=== PATIENT | male | born 1995 | race Caucasian/White ===

== ENCOUNTER → 2023-12-06 | Emergency (ER) | payer SELFPAY ==
[~2023-12-06] MED LIST: NA CHLORIDE 0.9% 1,000 ML ONE
--- OUTSIDE RECORDS SUMMARY | 2023-12-06 21:18 | XMS REPORT | Continuity of Care Document ---
Author Name Unknown Address [address] [facility] [facility] [address] [place] [address] [facility] thconnect Address 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 Ordering Clinician Indication Dosage Frequency Signature (SIG) Comments Components Source Esomeprazol e Magnesium (Nexium Oral Susp) 10 Mg PACK 11-11 07:49: 00 No 20mg Daily [facility] Famotidine (Pepcid) 40 Mg TAB 11-11 07:49: 00 No 40mg Daily [facility] Ketorolac Tromethamin e (Toradol) 10 Mg TAB 11-11 07:49: 00 No 10mg Every 6 Hours as needed for Pain [facility] Ondansetron Hcl (Zofran Odt) 4 Mg TAB.RAPDIS 11-11 07:49: 00 No 4mg Every 8 Hours [facility] Vital Signs Vital Name Observation Time Observation Value Comments S rayray BP Diastolic 2021-11-11 08:26:00 69 mm[Hg] [facility] Systolic 2021-11-11 08:26:00 93 mm[Hg] [facility] Heart Rate 2021-11-11 08:26:00 58 /min [facility] Respiratory rate 2021-11-11 08:26:00 16 /min [facility] Body Temperature 2021-11-11 08:26:00 99.2 [degF] [facility] BP Diastolic 2021-11-11 08:05:00 69 mm[Hg] [facility] BP Systolic 2021-11-11 08:05:00 93 mm[Hg] [facility] Heart Rate 2021-11-11 08:05:00 58 /min [facility] Respiratory rate 2021-11-11 08:05:00 16 /min [facility] Body Temperature 2021-11-11 08:05:00 99.2 [degF] [facility] BP Diastolic 2021-11-11 07:20:00 69 mm[Hg] [facility] BP Systolic 2021-11-11 07:20:00 93 mm[Hg] [facility] Rate 2021-11-11 07:20:00 58 /min [facility] Respiratory rate 2021-11-11 07:20:00 16 /min [facility] Body Temperature 2021-11-11 07:20:00 99.2 [degF] [facility] Encounters Start Date/Time End Date/Time Encounter Type Admission Type Attending [facility] Facility Care Department Encounter ID Source 2021-11-11 07:15:00 2021-11-11 08:27:00 Emergency ER YESENIA LINDSEY [id number] [facility] [employer] 2021-11-11 07:15:00 2021-11-11 08:27:00 Departed Emergency Room ER YESENIA LINDSEY [id number] [facility] [employer]
--- NOTE | 2023-12-06 22:09 | RAD REPORT ---
EXAM DESCRIPTION: RAD - Chest Single View - 12/06/2023 10:04 pm CLINICAL HISTORY: near syncope Chest pain. COMPARISON: No comparisons FINDINGS: Portable technique limits examination quality. The lungs are grossly clear. The heart is normal in size. No displaced fractures. IMPRESSION: No acute intrathoracic process suspected.
[2023-12-06 22:13] LABS: Absolute Lymphocytes (CBC) 2.7 K/uL (0.7-4.9); Hematocrit 46.7 % (39.6-49.0); Lymphocytes % 25.5 % (15.3-44.8); MCV 88.3 fL (80-100); MPV 9.2 fL (7.6-11.3); Platelets 199 thou/uL (152-406); RBC Red Blood Cell Count 5.29 M/uL (4.33-5.43)
[2023-12-06 22:22] LABS: Albumin 4.2 g/dL (3.4-5.0); Bilirubin Direct 0.1 mg/dL (0-0.2); Bilirubin Indirect, Calculated 0.4 mg/dL (0.2-0.8); Bilirubin Total 0.5 mg/dL (0.2-1.0); Magnesium 2.1 mg/dL (1.6-2.4); Potassium 3.6 mEq/L (3.5-5.1); Protein, Total 7.2 g/dL (6.4-8.2); Troponin High Sensitivity 3.9 pg/mL (<58.9)
--- NOTE | 2023-12-06 23:31 | ER ---
Nurse's Notes [facility] Name: Moreno Carbajal Jr Age: 27 yrs Sex: Male : 1995 Arrival Date: 12/06/2023 Time: 21:15 Bed 8 Private MD: Diagnosis: Syncope Near;Near syncopal episode Presentation: 12/06 21:29 Chief complaint: Patient states: Pt c/o pain behind right eye, on top of his head, tl4 dizziness, and feeling like he is going to pass out. Pt denies any recent illness or trauma. Pt denies CP, SOB. Coronavirus screen: At this time, the client does not indicate any symptoms associated with coronavirus-19. Ebola Screen: No symptoms or risks identified at this time. Initial Sepsis Screen: Does the patient meet any 2 criteria? No. Patient's initial sepsis screen is negative. Does the patient have a suspected source of infection? No. Patient's initial sepsis screen is negative. Risk Assessment: Do you want to hurt yourself or someone else? Patient reports no desire to harm self or others. Onset of symptoms was December 06, 2023 at 20:35. 21:29 Method Of Arrival: Ambulatory tl4 21:29 Acuity: MARILEE 2 tl4 Triage Assessment: 21:36 General: Appears distressed, Behavior is calm, cooperative. Pain: Complains of pain in tl4 face. EENT: No deficits noted. No signs and/or symptoms were reported regarding the EENT system. Neuro: Reports dizziness, headache. Cardiovascular: No deficits noted. Denies chest pain. Respiratory: No deficits noted. Denies cough, shortness of breath. GI: No deficits noted. No signs and/or symptoms were reported involving the gastrointestinal system. : No deficits noted. No signs and/or symptoms were reported regarding the genitourinary system. Derm: No deficits noted. No signs and/or symptoms reported regarding the dermatologic system. Historical: - Allergies: 21:35 [place]; tl4 - Home Meds: 21:35 None [Active]; tl4 - PMHx: 21:35 None; tl4 - PSHx: 21:35 Tonsillectomy; shoulder surgery; tl4 - Immunization history:: Adult Immunizations unknown. - Social history:: Smoking status: Patient denies any tobacco usage or history of. - Family history:: not pertinent. Screenin:56 [facility] ED Fall Risk Assessment (Adult) History of falling in the last 3 months, tm6 including since admission No falls in past 3 months (0 pts). Abuse screen: Denies threats or abuse. Denies injuries from another. Nutritional screening: No deficits noted. Tuberculosis screening: No symptoms or risk factors identified. Assessment: 21:52 General: Appears in no apparent distress. Pain: Denies pain. Pain: Complains of pain in tm6 right eye Pain currently is 2 out of 10 on a pain scale. Quality of pain is described as crampy. Neuro: Level of Consciousness is awake, alert, obeys commands, Oriented to person, place, time, situation, Reports cramping behind right eye and dizziness. Cardiovascular: Capillary refill < 3 seconds Patient's skin is warm and dry. Respiratory: Airway is patent Respiratory effort is even, unlabored, Respiratory pattern is regular, symmetrical. GI: Abdomen is flat, non-distended. : No signs and/or symptoms were reported regarding the genitourinary system. EENT: Reports pain in right eye. Derm: No signs and/or symptoms reported regarding the dermatologic system. Musculoskeletal: No signs and/or symptoms reported regarding the musculoskeletal system. 21:59 Cardiovascular: Rhythm is sinus arrythmia. tm6 22:51 Reassessment: Patient appears in no apparent distress at this time. Patient and/or tm6 family updated on plan of care and expected duration. Pain level reassessed. Patient is alert, oriented x 3, equal unlabored respirations, skin warm/dry/pink. Patient states feeling better. Patient states symptoms have improved. 23:39 Reassessment: Patient appears in no apparent distress at this time. No changes from tm6 previously documented assessment. Patient and/or family updated on plan of care and expected duration. Pain level reassessed. Vital Signs: 21:29 BP 130 / 90; Pulse 72; Resp 18; Temp 98.3; Pulse Ox 98% ; Weight 95.25 kg; Height 5 ft. tl4 11 in. ; Pain 2/10; 21:56 BP 140 / 59; Pulse 59; Resp 14; Pulse Ox 96% on R/A; Pain 2/10; tm6 22:51 BP 111 / 73; Pulse 56; Resp 17; Pulse Ox 94% on R/A; Pain 0/10; tm6 23:39 BP 131 / 73; Pulse 52; Pulse Ox 96% on R/A; Pain 0/10; tm6 21:29 Body Mass Index 29.29 (95.25 kg, 180.34 cm) tl4 21:29 Pain Scale: Adult tl4 21:56 Pain Scale: Adult tm6 22:51 Pain Scale: Adult tm6 23:39 Pain Scale: Adult tm6 ED Course: 21:20 Patient arrived in ED. jj6 21:21 [facility] kb 21:23 Redd White MD is Attending Physician. sp4 21:35 Triage completed. tl4 21:37 Arm band placed on right wrist. tl4 21:56 Patient has correct armband on for positive identification. Placed in gown. Bed in low tm6 position. Call light in reach. Side rails up X2. Provided Education on: plan of care. Client placed on continuous cardiac and pulse oximetry monitoring. NIBP monitoring applied. gambling monitor on. Door closed. Noise minimized. 21:56 No provider procedures requiring assistance completed. Inserted saline lock: 20 gauge tm6 in right forearm, using aseptic technique. 22:06 XRAY Chest (1 view) In Process Unspecified. EDMS 23:41 IV discontinued, intact, bleeding controlled, No redness/swelling at site. Pressure tm6 dressing applied. Administered Medications: 21:58 Drug: NS 0.9% IV 1000 ml IV at 1 bolus Per protocol; 1000 mL bolus Route: IV; Rate: 1 tm6 bolus; Site: right forearm; 22:59 Follow up: IV Status: Completed infusion; IV Intake: 1000ml tm6 Medication: 21:56 VIS not applicable for this client. tm6 Intake: 22:59 IV: 1000ml; Total: 1000ml. tm6 Outcome: 23:30 Discharge ordered by . sp4 23:40 Discharged to home ambulatory, with friend, tm6 23:40 Condition: stable 23:40 Discharge instructions given to patient, Instructed on discharge instructions, follow up and referral plans. need to lower caffeine intake Demonstrated understanding of instructions, follow-up care, 23:41 Patient left the ED. tm6 Signatures: Dispatcher [employer] EDMS Carito Wilder FNP-C FNP-Ckb Jeffries, Jennifer jj6 Redd White MD MD sp4 Roxana Portillo RN RN tm6 Donnie Martin tl4 Corrections: (The following items were deleted from the chart) 21:36 21:35 Allergies: No Known Allergies; tl4 tl4
--- NOTE | 2023-12-06 23:31 | EDPHYS ---
Physician Documentation [facility] Name: Moreno Carbajal Jr Age: 27 yrs Sex: Male : 1995 Arrival Date: 12/06/2023 Time: 21:15 Bed 8 Private MD: ED Physician Redd White HPI: 12/06 21:23 This 27 yrs old Male presents to ER via Unassigned with complaints of sp4 Numbness Of Face, Facial twitching, Dizziness, Blurred Vision, Severe pain in the right side temporal area. 23:25 7-year-old man presents with acute onset of dizziness, headache and near syncopal sp4 episode. Patient states he consumes significant amount of caffeine when he works out up to 400 mg caffeine. Patient is here on work projects from [place]. Reports no significant past medical history no history of prior heart conditions. . Historical: - Allergies: 21:35 [place]; tl4 - Home Meds: 21:35 None [Active]; tl4 - PMHx: 21:35 None; tl4 - PSHx: 21:35 Tonsillectomy; shoulder surgery; tl4 - Immunization history:: Adult Immunizations unknown. - Social history:: Smoking status: Patient denies any tobacco usage or history of. - Family history:: not pertinent. ROS: 23:25 Constitutional: Negative for fever, chills, and weight loss, positive for near syncopal sp4 episode, dizziness, headache, feeling unwell. Eyes: Negative for injury, pain, redness, and discharge, ENT: Negative for injury, pain, and discharge, 23:25 All other systems are negative, Exam: 23:25 Constitutional: This is a well developed, well nourished patient who is awake, alert, sp4 and in no acute distress. Head/Face: Normocephalic, atraumatic. Eyes: Pupils equal round and reactive to light, extra-ocular motions intact. Lids and lashes normal. Conjunctiva and sclera are not injected. Cornea within normal limits. Periorbital areas with no swelling, redness, or edema. ENT: Nares patent. No nasal discharge, no septal abnormalities noted. Tympanic membranes are normal and external auditory canals are clear. Oropharynx with no redness, swelling, or masses, exudates, or evidence of obstruction, uvula midline. Mucous membranes moist. Neck: Trachea midline, no thyromegaly or masses palpated, and no cervical lymphadenopathy. Supple, full range of motion without nuchal rigidity, or vertebral point tenderness. Chest/axilla: Normal chest wall appearance and motion. Nontender with no deformity. No lesions are appreciated. Cardiovascular: Regular rate and rhythm with a normal S1 and S2. No gallops, murmurs, or rubs. Normal PMI, no JVD. No pulse deficits. Respiratory: Lungs have equal breath sounds bilaterally, clear to auscultation and percussion. No rales, rhonchi or wheezes noted. No increased work of breathing, no retractions or nasal flaring. Abdomen/GI: Soft, non-tender, with normal bowel sounds. No distension or tympany. No guarding or rebound. No evidence of tenderness throughout. Back: No spinal tenderness. No costovertebral tenderness. Skin: Warm, dry with normal turgor. Normal color with no rashes, no lesions, and no evidence of cellulitis. MS/ Extremity: Pulses equal, no cyanosis. Neurovascular intact. Full, normal range of motion. Neuro: Awake and alert, GCS 15, oriented to person, place, time, and situation. Cranial nerves II-XII grossly intact. Motor strength 5/5 in all extremities. Sensory grossly intact. Psych: Awake, alert, with orientation to person, place and time. Behavior, mood, and affect are within normal limits 23:25 ECG was reviewed by the Attending Physician. EKG time 2148 Vital Signs: 21:29 BP 130 / 90; Pulse 72; Resp 18; Temp 98.3; Pulse Ox 98% ; Weight 95.25 kg; Height 5 ft. tl4 11 in. ; Pain 2/10; 21:56 BP 140 / 59; Pulse 59; Resp 14; Pulse Ox 96% on R/A; Pain 2/10; tm6 22:51 BP 111 / 73; Pulse 56; Resp 17; Pulse Ox 94% on R/A; Pain 0/10; tm6 23:39 BP 131 / 73; Pulse 52; Pulse Ox 96% on R/A; Pain 0/10; tm6 21:29 Body Mass Index 29.29 (95.25 kg, 180.34 cm) tl4 21:29 Pain Scale: Adult tl4 21:56 Pain Scale: Adult tm6 22:51 Pain Scale: Adult tm6 23:39 Pain Scale: Adult tm6 MDM: 21:28 Patient medically screened. sp4 23:28 Differential diagnosis: metabolic disorder, drug effects. Data reviewed: vital signs, sp4 nurses notes, lab test result(s), EKG, radiologic studies, plain films. ED course: Patient has unremarkable workup today.. ED course: EXAM DESCRIPTION: RAD - Chest Single View - 12/06/2023 10:04 pm CLINICAL HISTORY: near syncope Chest pain. COMPARISON: No comparisons FINDINGS: Portable technique limits examination quality. The lungs are grossly clear. The heart is normal in size. No displaced fractures. IMPRESSION: No acute intrathoracic process suspected. . ED course: Patient was advised to decrease caffeine intake per day. . 12/06 21:33 Order name: Basic Metabolic Panel; Complete Time: 23:21 sp4 12/06 21:33 Order name: CBC with Diff; Complete Time: 23:21 sp4 12/06 21:33 Order name: LFT's; Complete Time: 23:21 sp4 12/06 21:33 Order name: Magnesium; Complete Time: 23:21 sp4 12/06 21:33 Order name: NT PRO-BNP; Complete Time: 23:21 sp4 12/06 21:33 Order name: Troponin HS; Complete Time: 23:21 sp4 12/06 21:33 Order name: XRAY Chest (1 view); Complete Time: 23:21 sp4 12/06 21:33 Order name: EKG; Complete Time: 21:34 sp4 12/06 21:33 Order name: Cardiac monitoring; Complete Time: 21:44 sp4 12/06 21:33 Order name: EKG - Nurse/Tech; Complete Time: 21:51 sp4 12/06 21:33 Order name: IV Saline Lock; Complete Time: 21:51 sp4 12/06 21:33 Order name: Labs collected and sent; Complete Time: 21:51 sp12/06 21:33 Order name: O2 Per Protocol; Complete Time: 21:44 sp4 12/06 21:33 Order name: O2 Sat Monitoring; Complete Time: 21:44 sp4 EC:25 Rate is 91 beats/min. Rhythm is regular, Normal Sinus Rhythm. QRS [place] is Normal. IN sp4 interval is normal. QRS interval is normal. QT interval is prolonged. No Q waves. No ST changes noted. Clinical impression: No evidence of ischemia. Interpreted by me. Reviewed by me. Administered Medications: 21:58 Drug: NS 0.9% IV 1000 ml IV at 1 bolus Per protocol; 1000 mL bolus Route: IV; Rate: 1 tm6 bolus; Site: right forearm; 22:59 Follow up: IV Status: Completed infusion; IV Intake: 1000ml tm6 Disposition Summary: 12/06/23 23:30 Discharge Ordered Problem: new sp4 Symptoms: have improved sp4 Condition: Stable sp4 Diagnosis - Syncope Near sp4 - Near syncopal episode sp4 Followup: sp4 - With: Private Physician - When: 7 - 10 days - Reason: Recheck today's complaints Discharge Instructions: - Discharge Summary Sheet sp4 - Near-Syncope, Oxic-tp-Gvdl sp4 Forms: - Patient Portal Instructions sp4 Signatures: Dispatcher [employer] EDRedd Dos Santos MD MD sp4 Roxana Portillo RN RN tm6 Donnie Martin tl4 Corrections: (The following items were deleted from the chart) 21:36 21:35 Allergies: No Known Allergies; tl4 tl4
[2023-12-07 11:57] VITALS: TEMP 98.3; O2SAT 96
[2023-12-07 12:14] VITALS: BP 131/73
--- NOTE | 2023-12-08 13:27 | EKG ---
Test Date: 2023-12-06 Test Time: 21:48:08 Network Support Administrator: XAVI MEASUREMENT RESULTS: Intervals: Rate: 91 NM: 146 QRSD: 78 QT: 382 QTc: 469 [place]: P: 47 NM: 146 QRS: 92 T: 19 INTERPRETIVE STATEMENTS: Normal sinus rhythm with sinus arrhythmia Nonspecific T wave abnormality Prolonged QT Abnormal ECG No previous ECG available for comparison Electronically Signed On 12-08-23 13:23:00 PROCESS SERVER by Roldan Velarde
== END ==
LOC: ER 21:15
DX: R55 Syncope and collapse (principal)
CPT/HCPCS: 36415; 71045; 80048; 80076; 83735; 83880; 84484; 85025; 93005; J7030